=== PATIENT | male | born 1995 | race Caucasian/White ===

== ENCOUNTER 2024-03-07 17:32 | Inpatient (IN) | payer SELFPAY ==
[~2024-03-07] VITALS: Ht 172.7 cm; Wt 95.8 kg
[2024-03-07 18:15] LABS: BASOPHILS % 1.1 % (0.0-2.0); DIFFERENTIAL COMMENT 0; EOSINOPHILS % 3.2 % (0.0-5.0); HEMATOCRIT. 33.7 % (42.0-52.0); HEMOGLOBIN. 11.6 g/dL (14.0-18.0); LYMPHOCYTES % 11.1 % (20.0-50.0); MEAN CORPUSCULAR HEMOGLOBIN 36.2 pg (28.0-32.0); MEAN CORPUSCULAR HGB CONC 34.4 g/dL (31.0-37.0); MEAN CORPUSCULAR VOLUME 105.2 fL (80.0-94.0); MONOCYTES % 6.3 % (2.0-8.0); NEUTROPHILS % 78.3 % (40.0-76.0); PLATELET 258 x1000/uL (130-400); RED CELL DISTRIBUTION WIDTH 21.3 % (11.6-14.6)
[2024-03-07 18:26] LABS: CHLORIDE 103 mEq/L (98-107); POTASSIUM 3.1 mEq/L (3.5-5.1); SODIUM 137 mEq/L (136-145)
[2024-03-07 18:28] LABS: CALCIUM 8.6 mg/dL (8.7-10.4); CARBON DIOXIDE 25 mEq/L (21-32)
[2024-03-07 18:33] LABS: CREATININE 0.8 mg/dL (0.6-1.3); GLUCOSE 100 mg/dL (70-105)
[2024-03-07 18:34] LABS: ALANINE AMINOTRANSFERASE 18 IU/L (10-49); UREA NITROGEN BLOOD < 5 mg/dL (9-23)
[2024-03-07 18:35] LABS: ALBUMIN 3.1 g/dL (3.2-4.8); ASPARTATE AMINOTRANSFERASE 101 IU/L (<34); BILIRUBIN DIRECT > 15.0 mg/dL (<=3.0)
[2024-03-07 18:36] LABS: BILIRUBIN TOTAL 26.3 mg/dL (0.1-1.0); PROTEIN TOTAL 7.8 g/dL (6.0-8.3)
[2024-03-07] MEDS: CEFTRIAXONE 1GM/50ML 50 ML IV ONE (19:03)
[2024-03-07] MEDS: PANTOPRAZOLE SODIUM 40 MG/VIAL IV STA (19:03)
[2024-03-07] MEDS: SODIUM CHLORIDE 0.9% (SEPSIS BOLUS) IV ONE (19:08)
[2024-03-07 19:51] LABS: INR 1.4; PARTIAL THROMBOPLASTIN TIME 29.9 sec (23.4-31.0); PROTHROMBIN TIME 15.6 sec (9.6-11.0)
[2024-03-07] MEDS: POTASSIUM CHLORIDE 20MEQ TABLET SR PO ONE (20:12)
[2024-03-07] MEDS: OCTREOTIDE ACETATE 50 MCG/ML 1ML IV STA (20:12)
[2024-03-07] MEDS ORDERED: ACETAMINOPHEN 325MG TABLET PO PRN ×2 (20:45)
[2024-03-07] MEDS ORDERED: GUAIFENESIN 200MG/10ML SUGAR FREE UDC PO PRN (20:45)
[2024-03-07] MEDS ORDERED: MAGNESIUM/ALUMINUM HYDROXIDE/SIMETHICONE 30ML UDC PO PRN (20:45)
[2024-03-07] MEDS ORDERED: LORAZEPAM 2MG/ML INJ IV PRN ×2 (20:45→21:30)
[2024-03-07] MEDS ORDERED: IPRATROPIUM/ALBUTEROL 0.5-3(2.5)MG/3ML NEB HHN PRN (20:45)
[2024-03-07] MEDS ORDERED: CHLORDIAZEPOXIDE 25MG CAPSULE PO PRN (20:45)
[2024-03-07] MEDS ORDERED: ONDANSETRON HCL 4MG/2ML INJ IV PRN (20:45)
[2024-03-07] MEDS ORDERED: DOCUSATE SODIUM 100MG CAPSULE PO PRN (20:45)
[2024-03-07] MEDS: PANTOPRAZOLE SODIUM 40 MG/VIAL IV SCH (21:35)
[2024-03-07 22:17] VITALS: BP 147/81; PULSE 111; RESP 19; TEMP 36.83628; O2SAT 98
[2024-03-08] MEDS: MVI, ADULT NO.1 10 ML, FOLIC ACID 1 MG, THIAMINE HCL 100 MG in SODIUM CHLORIDE 0.9% 1,0... IV ONE (00:25)
[2024-03-08 00:52] VITALS: BP 147/81; PULSE 111; RESP 19; TEMP 36.8628
[2024-03-08 02:12] LABS: AMMONIA 85 uMol/L (<32)
[2024-03-08 04:00] VITALS: BP 153/97; PULSE 96; RESP 20; TEMP 36.28068; O2SAT 99
[2024-03-08 07:48] LABS: BASOPHILS % 0.5 % (0.0-2.0); DIFFERENTIAL COMMENT 0; EOSINOPHILS % 2.6 % (0.0-5.0); HEMATOCRIT. 34.3 % (42.0-52.0); HEMOGLOBIN. 11.2 g/dL (14.0-18.0); LYMPHOCYTES % 18.3 % (20.0-50.0); MEAN CORPUSCULAR HGB CONC 32.7 g/dL (31.0-37.0); MEAN CORPUSCULAR VOLUME 107.1 fL (80.0-94.0); MEAN PLATELET VOLUME 8.1 fl (7.4-10.4); MONOCYTES % 5.6 % (2.0-8.0); PLATELET 232 x1000/uL (130-400); RED CELL DISTRIBUTION WIDTH 21.4 % (11.6-14.6); WHITE BLOOD COUNT 15.1 x1000/uL (4.5-11.0)
[2024-03-08 07:54] LABS: CARBON DIOXIDE 26 mEq/L (21-32); CHLORIDE 103 mEq/L (98-107); POTASSIUM 3.4 mEq/L (3.5-5.1); SODIUM 136 mEq/L (136-145)
[2024-03-08 07:55] LABS: CALCIUM 8.7 mg/dL (8.7-10.4)
[2024-03-08 07:59] LABS: CREATININE 0.8 mg/dL (0.6-1.3)
[2024-03-08 08:00] VITALS: BP 145/80; PULSE 94; RESP 20; TEMP 36.61404; O2SAT 100
[2024-03-08 08:00] LABS: GLUCOSE 97 mg/dL (70-105); TRIGLYCERIDE 261 mg/dL (0-150)
[2024-03-08 08:08] LABS: FOLIC ACID (FOLATE) SERUM > 20.00 ng/mL (>5.38)
[2024-03-08 08:09] LABS: VITAMIN B12 SERUM 1018 pg/mL (211-911)
[2024-03-08 08:14] LABS: LDL CHOLESTEROL 42 mg/dL (5-100)
[2024-03-08 08:15] LABS: ALANINE AMINOTRANSFERASE 16 IU/L (10-49); ALBUMIN 2.9 g/dL (3.2-4.8); ASPARTATE AMINOTRANSFERASE 94 IU/L (<34); BILIRUBIN DIRECT > 15.0 mg/dL (<=3.0); BILIRUBIN TOTAL 27.3 mg/dL (0.1-1.0); CHOLESTEROL 135 mg/dL (<200); GAMMA GLUTAMYL TRANSPEPTIDASE 161 IU/L (<73); HDL CHOLESTEROL < 20 mg/dL (>55); PROTEIN TOTAL 7.4 g/dL (6.0-8.3)
[2024-03-08 08:18] LABS: T4 FREE 1.07 ng/dL (0.89-1.76); THYROID STIMULATING HORMONE 1.08 uIU/mL (0.55-4.78)
[2024-03-08 08:40] LABS: UREA NITROGEN BLOOD < 5 mg/dL (9-23)
[2024-03-08] MEDS: FOLIC ACID 1MG TABLET PO SCH (09:37)
[2024-03-08] MEDS: MULTIVITAMINS,THER W-MINERALS TABLET PO SCH (09:37)
[2024-03-08 12:00] VITALS: BP 131/79; PULSE 93; RESP 20; TEMP 36.78072; O2SAT 100
[2024-03-08 16:00] VITALS: BP 162/87; PULSE 93; RESP 20; TEMP 36.89184; O2SAT 99
[2024-03-08] MEDS: PHYTONADIONE 10MG/ML INJ SUBCUT SCH (17:23)
[2024-03-08] MEDS: MAGNESIUM 1 G PREMIX 100 ML IV NR (17:23)
[2024-03-08] MEDS ORDERED: CEFTRIAXONE 1GM/50ML 50 ML IV SCH (18:00)
[2024-03-08] MEDS: CLONIDINE 0.1MG TABLET PO PRN (18:37)
[2024-03-08 20:00] VITALS: BP 143/79; PULSE 102; RESP 20; TEMP 36.3918; O2SAT 100
[2024-03-08 20:48] LABS: CLARITY URINE CLEAR (CLEAR); COLOR URINE DARK YELLOW (YELLOW); GLUCOSE URINE NEGATIVE (NEGATIVE); KETONES URINE NEGATIVE (NEGATIVE); LEUKOCYTE ESTERASE URINE TRACE (NEGATIVE); NITRITE URINE NEGATIVE (NEGATIVE); OCCULT BLOOD URINE NEGATIVE (NEGATIVE); PH URINE 7.5 (4.5-8.0); PROTEIN URINE NEGATIVE (NEGATIVE); SPECIFIC GRAVITY URINE 1.011 (1.005-1.030)
[2024-03-08 21:01] LABS: *AMPHETAMINES SCREEN URINE PRESUMPTIVE POSITIVE (NEGATIVE); *BARBITURATES SCREEN URINE NEGATIVE (NEGATIVE); *BENZODIAZEPINES SCREEN URINE NEGATIVE (NEGATIVE); *COCAINE SCREEN URINE NEGATIVE (NEGATIVE)
[2024-03-08 21:02] LABS: CANNABINOID URINE SCREEN NEGATIVE (NEGATIVE); ECSTASY MDMA SCREEN URINE NEGATIVE (NEGATIVE); METHADONE URINE SCREEN NEGATIVE (NEGATIVE); OPIATES URINE SCREEN NEGATIVE (NEGATIVE); PHENCYCLIDINE URINE SCREEN NEGATIVE (NEGATIVE)
[2024-03-08 21:15] LABS: BACTERIA URINE TRACE; RBC URINE NONE SEEN /hpf (0-2); SQUAMOUS EPITHELIAL CELL URINE FEW /lpf (RARE/1+); WBC URINE 0-2 /hpf (0-2)
[2024-03-08] MEDS: MELATONIN 3MG TABLET PO SCH (21:27)
[2024-03-08] MEDS: CEFTRIAXONE 1GM/50ML 50ML IV SCH (21:27)
[2024-03-08] MEDS: FOLIC ACID 1 MG, THIAMINE HCL 100 MG, MVI, ADULT NO.1 10 ML in DEXTROSE 5% WATER 1,000 ML IV SCH (21:28)
[2024-03-08] MEDS: AMLODIPINE 5MG TABLET PO NR (21:30)
[2024-03-09] VITALS: BP 121/68; PULSE 109; RESP 22; TEMP 36.55848; O2SAT 98
[2024-03-09 04:00] VITALS: BP 165/86; PULSE 106; RESP 22; TEMP 36.61404; O2SAT 99
[2024-03-09 07:25] LABS: INR 1.5; PROTHROMBIN TIME 15.9 sec (9.6-11.0)
[2024-03-09 07:27] LABS: HEMATOCRIT. 31.9 % (42.0-52.0); HEMOGLOBIN. 10.7 g/dL (14.0-18.0); MEAN CORPUSCULAR HEMOGLOBIN 35.7 pg (28.0-32.0); MEAN CORPUSCULAR HGB CONC 33.6 g/dL (31.0-37.0); MEAN CORPUSCULAR VOLUME 106.2 fL (80.0-94.0); MEAN PLATELET VOLUME 8.1 fl (7.4-10.4); PLATELET 222 x1000/uL (130-400); RED BLOOD CELL COUNT 3.01 mill/uL (4.7-6.1); RED CELL DISTRIBUTION WIDTH 21.7 % (11.6-14.6); WHITE BLOOD COUNT 16.3 x1000/uL (4.5-11.0)
[2024-03-09 07:29] LABS: DIFFERENTIAL COMMENT 1
[2024-03-09 07:30] LABS: CHLORIDE 100 mEq/L (98-107); POTASSIUM 2.9 mEq/L (3.5-5.1); SODIUM 133 mEq/L (136-145)
[2024-03-09 07:34] LABS: CALCIUM 8.5 mg/dL (8.7-10.4); CARBON DIOXIDE 25 mEq/L (21-32)
[2024-03-09 07:39] LABS: ALANINE AMINOTRANSFERASE 12 IU/L (10-49); ALBUMIN 2.7 g/dL (3.2-4.8); CREATININE 0.9 mg/dL (0.6-1.3); GLUCOSE 96 mg/dL (70-105)
[2024-03-09 07:40] LABS: ASPARTATE AMINOTRANSFERASE 78 IU/L (<34)
[2024-03-09 07:41] LABS: BILIRUBIN DIRECT > 15.0 mg/dL (<=3.0)
[2024-03-09 07:42] LABS: BILIRUBIN TOTAL 28.2 mg/dL (0.1-1.0); PROTEIN TOTAL 7.1 g/dL (6.0-8.3)
[2024-03-09 07:58] LABS: UREA NITROGEN BLOOD < 5 mg/dL (9-23)
[2024-03-09 08:00] VITALS: BP 122/57; PULSE 95; RESP 18; TEMP 36.89184; O2SAT 96
[2024-03-09] MEDS: AMLODIPINE 10MG TABLET PO SCH (09:40)
[2024-03-09 12:00] VITALS: BP 123/68; PULSE 95; RESP 18; TEMP 36.83628; O2SAT 99
[2024-03-09 12:28] LABS: HEPATITIS B SURFACE ANTIGEN NEGATIVE (Negative)
[2024-03-09 12:49] LABS: HEPATITIS A AB IGM NEGATIVE (Negative)
[2024-03-09 12:50] LABS: HEPATITIS B CORE AB IGM NEGATIVE (Negative); HEPATITIS C AB NON REACTIVE (Neg) (Negative)
[2024-03-09] MEDS ORDERED: PANT40VI IV (13:47)
[2024-03-09] MEDS ORDERED: THIA100T72 PO (13:47)
[2024-03-09] MEDS ORDERED: AMLO10TA80 PO (13:47)
[2024-03-09] MEDS ORDERED: FOLI-43 PO (13:47)
[2024-03-09] MEDS: POTASSIUM CHLORIDE 20MEQ/PACKET PO NR (14:47)
[2024-03-09 14:52] VITALS: BP 125/61; PULSE 92; TEMP 98.2; O2SAT 99
[2024-03-09 16:00] VITALS: BP 127/60; PULSE 92; RESP 18; TEMP 36.72516; O2SAT 98
[2024-03-10] MEDS ORDERED: THIAMINE HCL 100MG TABLET PO SCH (09:00)
[2024-03-10 16:29] LABS: ANISOCYTOSIS 2+; PLATELET ESTIMATE NORMAL
[2024-03-12 13:11] LABS: ETHANOL URINE Negative % (Cutoff=0.020)
== END 2024-03-09 17:23 | disposition home or self-care (01) | DRG 280 ==
LOC: ER 17:32 → EDBEDREQ 19:22 → EDBEDREQTM 19:55 → 7EST 22:32
PROVIDERS: ADMIT Hospitalist; ATTEND Hospitalist
DX: K70.30 Alcoholic cirrhosis of liver without ascites (principal); K70.10 Alcoholic hepatitis without ascites; I85.11 Secondary esophageal varices with bleeding; D68.9 Coagulation defect, unspecified; E44.1 Mild protein-calorie malnutrition; E72.20 Disorder of urea cycle metabolism, unspecified; E88.09 Other disorders of plasma-protein metabolism, not elsewhere classified; E11.9 Type 2 diabetes mellitus without complications; D53.9 Nutritional anemia, unspecified; Y90.9 Presence of alcohol in blood, level not specified; K80.20 Calculus of gallbladder without cholecystitis without obstruction; E66.01 Morbid (severe) obesity due to excess calories; E78.5 Hyperlipidemia, unspecified; E87.6 Hypokalemia; R16.1 Splenomegaly, not elsewhere classified; K76.0 Fatty (change of) liver, not elsewhere classified; F10.10 Alcohol abuse, uncomplicated; E80.6 Other disorders of bilirubin metabolism; Z90.49 Acquired absence of other specified parts of digestive tract; Z59.00 Homelessness unspecified; Z79.899 Other long term (current) drug therapy; Z68.32 Body mass index [BMI] 32.0-32.9, adult
CPT/HCPCS: 36415; 71045; 76700; 76705; 80048; 80061; 80076; 80305; 80320; 81003; 82105; 82140; 82607; 82746; 82977; 83605; 83735; 84145; 84439; 84443; 85025; 85044; 86705; 86709; 86850; 86900; 87340; 93005; 99291; J0696; J2354; J2470; J3411; J3430; J3475; J3490; J7030; J7070